=== PATIENT | female | born 1960 | race Caucasian/White ===

== ENCOUNTER → 2017-07-08 | Outpatient (CLI) | payer BC | LOC: MC.RAD 11:10 | DX: Z12.31 Encounter for screening mammogram for malignant neoplasm of breast (principal) ==

== ENCOUNTER → 2018-08-08 | Outpatient (CLI) | payer BC | LOC: MC.RAD 10:48 | DX: Z12.31 Encounter for screening mammogram for malignant neoplasm of breast (principal) ==

== ENCOUNTER → 2019-08-09 | Outpatient (CLI) | payer BC | LOC: MC.RAD 13:10 | DX: Z12.31 Encounter for screening mammogram for malignant neoplasm of breast (principal) ==

== ENCOUNTER → 2020-08-12 | Outpatient (CLI) | payer OTHER | LOC: MC.RAD 10:56 | DX: Z12.31 Encounter for screening mammogram for malignant neoplasm of breast (principal) ==

== ENCOUNTER → 2021-08-13 | Outpatient (CLI) | payer OTHER | LOC: MC.RAD 10:57 | DX: Z12.31 Encounter for screening mammogram for malignant neoplasm of breast (principal) ==

== ENCOUNTER → 2023-08-19 | Outpatient (CLI) | payer OTHER | LOC: CANSCHCLI → MC.RAD 11:12 | DX: Z12.31 Encounter for screening mammogram for malignant neoplasm of breast (principal) ==